=== PATIENT | male | born 1960 | race Two or more races ===

== ENCOUNTER 2021-02-10 00:18 | Inpatient (IN) | payer OTHER ==
[~2021-02-10] VITALS: Ht 170.2 cm; Wt 79.4 kg
--- NOTE | 2021-02-10 00:45 | NUR ---
PT BIB FOR C/O ON AND OFF SOB FOR THE PAST 2 DAYS. HAD R NEPHRECTOMY AT [facility] 1 MONTH AGO. PT ALERT AND ORIENTED X3. AMBULATORY
--- NOTE | 2021-02-10 01:23 | NUR ---
EMT @ BEDSIDE DOING EKG
--- NOTE | 2021-02-10 01:23 | NUR ---
BLOOD COLLECTED AND SENT TO LAB
[2021-02-10 01:37] LABS: BASOPHILS # (AUTO) 0.1 K/uL (0.0-0.2); BASOPHILS % (AUTO) 0.6 % (0.0-2.0); EOSINOPHILS % (AUTO) 1.2 % (0.0-6.0); HEMATOCRIT 31 % (39-51); LYMPHOCYTES # (AUTO) 2.4 K/uL (0.8-4.8); LYMPHOCYTES % (AUTO) 20.9 % (20.0-44.0); MEAN CORPUSCULAR HGB CONC 32 g/dl (31.0-36.0); MEAN CORPUSCULAR VOLUME 78 fL (80-96); MONOCYTES # (AUTO) 0.8 K/uL (0.1-1.30); MONOCYTES % (AUTO) 6.7 % (2.0-12.0); NEUTROPHILS # (AUTO) 8.2 K/uL (1.8-8.9); NEUTROPHILS % (AUTO) 70.6 % (43.0-81.0); PLATELET COUNT (AUTO) 379 K/uL (150-450); RED BLOOD CELL COUNT(AUTO) 3.98 MIL/uL (4.5-6.0); WHITE BLOOD COUNT (AUTO) 11.6 K/uL (4.3-11.0)
[2021-02-10 01:44] LABS: CALCIUM, SERUM 9.5 mg/dL (8.5-10.1); CARBON DIOXIDE 28 mmol/L (21-32); CHLORIDE 101 mmol/L (98-107); CREATININE 1.5 mg/dL (0.6-1.3); GLUCOSE 97 mg/dL (74-106); SODIUM SERUM 138 mmol/L (136-145); UREA NITROGEN, BLOOD 27 mg/dL (7-18)
[2021-02-10 02:00] LABS: ALANINE AMINOTRANSFERASE 24 U/L (12-78); ALBUMIN 3.9 g/dL (3.4-5.0); ALKALINE PHOSPHATASE 107 U/L (46-116); ASPARTATE AMINOTRANSFERASE 13 U/L (15-37); BILIRUBIN,DIRECT 0.1 mg/dL (0.0-0.2); BILIRUBIN,TOTAL 0.3 mg/dL (0.2-1.0); TOTAL PROTEIN, SERUM 7.7 g/dL (6.4-8.2)
--- NOTE | 2021-02-10 04:32 | NUR ---
RESTING COMFORTABLY. VSS.
[2021-02-10] MEDS ORDERED: ASPIRIN 81 MG TAB.CHEW PO ONE (05:30)
--- NOTE | 2021-02-10 05:31 | NUR ---
dr ibrahim on the phone w/ dr san
[2021-02-10] MEDS ORDERED: ASPIRIN 81 MG TAB.CHEW ONE (05:33)
[2021-02-10] MEDS ORDERED: MAGNESIUM HYDROXIDE 30 ML UDC PO PRN (06:00)
[2021-02-10] MEDS ORDERED: MORPHINE SULFATE INJ 2 MG/ML DISP.SYRIN IV PRN (06:00)
[2021-02-10] MEDS ORDERED: TEMAZEPAM 15 MG CAPSULE PO PRN (06:00)
[2021-02-10] MEDS ORDERED: MAG HYDROX/AL HYDROX/SIMETH 30 ML UDC PO PRN (06:00)
[2021-02-10] MEDS ORDERED: HYDROCODONE/APAP 5/325MG TABLET PO PRN (06:00)
[2021-02-10] MEDS ORDERED: Z GUARD REMEDY 2 OZ OINT TP PRN (06:00)
[2021-02-10] MEDS ORDERED: ACETAMINOPHEN 325 MG TABLET PO PRN (06:00)
[2021-02-10] MEDS ORDERED: ONDANSETRON HCL/PF 4 MG/2 ML VIAL IVP PRN (06:00)
[2021-02-10] MEDS ORDERED: IV NS 0.9% 1,000 ML IV PRN (06:00)
--- NOTE | 2021-02-10 07:19 | NUR ---
TELE [id number]
--- NOTE | 2021-02-10 07:24 | NUR ---
RN NOTE RECEIVED REPORT FROM GERALDO KOCH
--- NOTE | 2021-02-10 07:25 | NUR ---
report given to rambo mocetzuma
--- NOTE | 2021-02-10 07:52 | NUR ---
transferred pt to 322-1
[2021-02-10] MEDS ORDERED: GLIP10TA11 PO (08:26)
[2021-02-10] MEDS ORDERED: OMEP40CA21 PO (08:26)
[2021-02-10] MEDS ORDERED: HYDR25TA4 PO (08:26)
[2021-02-10] MEDS ORDERED: LISI40TA13 PO (08:26)
[2021-02-10] MEDS ORDERED: METF-442 PO (08:26)
[2021-02-10] MEDS ORDERED: ALLO100T PO (08:26)
[2021-02-10] MEDS ORDERED: ALOG25TA2 PO (08:26)
[2021-02-10] MEDS ORDERED: PIOG45TA5 PO (08:26)
[2021-02-10] MEDS ORDERED: ATOR20TA PO (08:26)
[2021-02-10] MEDS ORDERED: AMLO-212 PO (08:26)
[2021-02-10 09:00] VITALS: BP 157/71
[2021-02-10] MEDS ORDERED: ASPIRIN 81 MG TAB.CHEW PO SCH (09:00)
[2021-02-10] MEDS ORDERED: ATORVASTATIN 10 MG TABLET PO SCH (09:00)
[2021-02-10 09:21] LABS: BASOPHILS # (AUTO) 0.1 K/uL (0.0-0.2); BASOPHILS % (AUTO) 1.1 % (0.0-2.0); HEMATOCRIT 35 % (39-51); LYMPHOCYTES # (AUTO) 2.2 K/uL (0.8-4.8); LYMPHOCYTES % (AUTO) 24.8 % (20.0-44.0); MEAN CORPUSCULAR HGB CONC 32 g/dl (31.0-36.0); MEAN CORPUSCULAR VOLUME 79 fL (80-96); MONOCYTES # (AUTO) 0.5 K/uL (0.1-1.30); MONOCYTES % (AUTO) 5.8 % (2.0-12.0); NEUTROPHILS # (AUTO) 5.9 K/uL (1.8-8.9); NEUTROPHILS % (AUTO) 67.3 % (43.0-81.0); PLATELET COUNT (AUTO) 389 K/uL (150-450); RED BLOOD CELL COUNT(AUTO) 4.39 MIL/uL (4.5-6.0); WHITE BLOOD COUNT (AUTO) 8.8 K/uL (4.3-11.0)
[2021-02-10] MEDS: PANTOPRAZOLE 40 MG TABLET.DR PO SCH (09:29)
[2021-02-10] MEDS: ASPIRIN 81 MG TAB.CHEW PO SCH (09:29)
[2021-02-10] MEDS: IV NS 0.9% 1,000 ML IV PRN ×2 (09:30→22:36)
[2021-02-10 09:40] LABS: CALCIUM, SERUM 9.4 mg/dL (8.5-10.1); CREATININE 1.3 mg/dL (0.6-1.3); POTASSIUM 4.3 mmol/L (3.5-5.1)
[2021-02-10 09:46] LABS: BILIRUBIN,TOTAL 0.4 mg/dL (0.2-1.0); PHOSPHORUS 3.8 mg/dL (2.5-4.9); TOTAL PROTEIN, SERUM 7.9 g/dL (6.4-8.2)
[2021-02-10 11:29] VITALS: BP 119/63
[2021-02-10] MEDS: METOPROLOL TARTRATE 50 MG TABLET PO SCH ×2 (11:37→17:03)
[2021-02-10] MEDS: ENOXAPARIN SODIUM 40 MG/0.4 ML DISP.SYRIN SQ SCH (14:03)
[2021-02-10 16:29] VITALS: BP 106/59
[2021-02-10] MEDS: glipiZIDE 10 MG TABLET PO SCH (17:03)
[2021-02-10] MEDS: METFORMIN 500 MG TABLET PO SCH (17:03)
--- NOTE | 2021-02-10 18:15 | NUR ---
END OF SHIFT SUMMARY PATIENT WAS TRANSFERRED VIA GURNEY AT 0750. PT IS AMBULATORY. A/O X4. UZBEK SPEAKING. ON ROOM AIR, NO SOB NOTED. IN NO APPARENT DISTRESS. BP 157/71 AK 68 RR 20 T 98.2 SA02 100%. PT IS ABLE TO MAKE NEEDS KNOWN. IV ACCESS ON L AC #18, NS RUNNING X 75 ML/HR, INTACT AND PATENT. NO REPORTS OF PAIN OR DISCOMFORT AT THIS TIME. DUE MEDS GIVEN ORDERED. ALL NEEDS HAVE BEEN MET AND ATTENDED. SAFETY MEASURES MAINTAINED. BED IN LOWEST POSITION, BRAKES LOCKED. SIDE RAILS UP X2. KEPT CALL LIGHT WITHIN REACH. WILL ENDORSE CONTINUITY OF CARE TO ONCOMING SHIFT.
--- NOTE | 2021-02-10 19:45 | NUR ---
CASINO SURVEILLANCE OFFICER OPENING NOTE PT A/OX4; ABLE TO MAKE NEEDS KNOWN. TOLERATING R/A WELL WITH NO SOB. EXTERNAL CARDIAC TELE MONITOR READS SR AT 70. DENIES PAIN OR DISCOMFORT AT THIS TIME. SURGICAL WOUND NOTED TO ABD; SKIN KEPT CLEAN AND DRY. LAC #18 NS @ 75ML/HR; PATENT AND INTACT. SAFETY MEASURES IN PLACE: BED IN LOWEST LOCKED POSITION, SIDE RAILS UP X2, CALL LIGHT WITHIN EASY REACH. PT IN STABLE CONDITION, WILL CONT. PLAN OF CARE.
[2021-02-10 20:40] VITALS: BP 128/68
[2021-02-11 00:01] VITALS: BP 130/70
[2021-02-11] MEDS: METOPROLOL TARTRATE 50 MG TABLET PO SCH ×5 (00:01→23:06)
--- NOTE | 2021-02-11 06:17 | NUR ---
M48 M60 ARMOR CREWMAN CLOSING NOTE PT A/OX4; ABLE TO MAKE NEEDS KNOWN. TOLERATING R/A WELL WITH NO SOB. EXTERNAL CARDIAC TELE MONITOR READS SB AT 56. DENIES PAIN OR DISCOMFORT AT THIS TIME. SURGICAL WOUND NOTED TO ABD; SKIN KEPT CLEAN AND DRY. LAC #18 NS @ 75ML/HR; PATENT AND INTACT. SAFETY MEASURES IN PLACE: BED IN LOWEST LOCKED POSITION, SIDE RAILS UP X2, CALL LIGHT WITHIN EASY REACH. PT IN STABLE CONDITION, WILL ENDORSE PLAN OF CARE TO ONCOMING MORNING RN.
[2021-02-11 06:29] LABS: BASOPHILS % (AUTO) 0.6 % (0.0-2.0); EOSINOPHILS % (AUTO) 1.5 % (0.0-6.0); HEMATOCRIT 31 % (39-51); LYMPHOCYTES # (AUTO) 2.7 K/uL (0.8-4.8); LYMPHOCYTES % (AUTO) 35.5 % (20.0-44.0); MEAN CORPUSCULAR HGB CONC 33 g/dl (31.0-36.0); MEAN CORPUSCULAR VOLUME 79 fL (80-96); MONOCYTES # (AUTO) 0.7 K/uL (0.1-1.30); MONOCYTES % (AUTO) 8.5 % (2.0-12.0); NEUTROPHILS # (AUTO) 4.1 K/uL (1.8-8.9); NEUTROPHILS % (AUTO) 53.9 % (43.0-81.0); PLATELET COUNT (AUTO) 369 K/uL (150-450); RED BLOOD CELL COUNT(AUTO) 3.91 MIL/uL (4.5-6.0); WHITE BLOOD COUNT (AUTO) 7.7 K/uL (4.3-11.0)
[2021-02-11 06:55] LABS: CREATININE 1.2 mg/dL (0.6-1.3); MAGNESIUM 1.9 mg/dL (1.8-2.4); PHOSPHORUS 4.4 mg/dL (2.5-4.9)
[2021-02-11 07:11] LABS: THYROID STIMULATING HORMONE 1.155 uIU/mL (0.358-3.74)
[2021-02-11] MEDS ORDERED: PANTOPRAZOLE 40 MG TABLET.DR PO SCH (07:30)
--- NOTE | 2021-02-11 07:44 | NUR ---
TELE/RN OPENING NOTES RECEIVED PATIENT ON BED AWAKE ALERT AND ORIENTED X4. PATIENT IS ON ROOM AIR. PATIENT IN NO APPARENT RESPIRATORY DISTRESS NOTED. NO COMPLAINED OF PAIN NOTED AT THIS TIME. TELE MONITOR READING SINUS ALBERTO 48 BPM. WILL CONTINUE TO MONITOR.
[2021-02-11] MEDS: PANTOPRAZOLE 40 MG TABLET.DR PO SCH (07:46)
[2021-02-11] MEDS: METFORMIN 500 MG TABLET PO SCH ×2 (08:27→17:08)
[2021-02-11] MEDS: ATORVASTATIN 10 MG TABLET PO SCH (08:27)
[2021-02-11] MEDS: ASPIRIN 81 MG TAB.CHEW PO SCH (08:28)
[2021-02-11] MEDS: glipiZIDE 10 MG TABLET PO SCH ×2 (08:28→17:07)
[2021-02-11] MEDS: ALLOPURINOL 100 MG TABLET PO SCH (08:28)
[2021-02-11] MEDS: AMLODIPINE BESYLATE 5 MG TABLET PO SCH (08:28)
[2021-02-11] MEDS: LINAGLIPTIN 5 MG TABLET PO SCH (08:28)
[2021-02-11] MEDS: PIOGLITAZONE HCL 15 MG TABLET PO SCH (08:28)
[2021-02-11] MEDS: HYDROCHLOROTHIAZIDE 25 MG TABLET PO SCH (08:29)
[2021-02-11] MEDS: ENOXAPARIN SODIUM 40 MG/0.4 ML DISP.SYRIN SQ SCH (08:33)
[2021-02-11 12:00] VITALS: BP 138/60
[2021-02-11 13:36] VITALS: BP 148/76
[2021-02-11] MEDS: DOCUSATE SODIUM 100 MG CAPSULE PO SCH (15:36)
[2021-02-11 15:37] LABS: BILIRUBIN,URINE NEGATIVE (NEGATIVE); COLOR,URINE YELLOW (YELLOW); LEUKOCYTE ESTERASE ,URINE NEGATIVE (NEGATIVE); NITRITE, URINE NEGATIVE (NEGATIVE); PROTEIN,URINE NEGATIVE (NEGATIVE); UGLUCOSE NEGATIVE (NEGATIVE); UROBILINOGEN,URINE 0.2 EU/dL (0.2)
[2021-02-11 16:28] LABS: EOSINOPHIL,URINE None Seen
[2021-02-11 16:58] VITALS: BP 148/68
--- NOTE | 2021-02-11 19:18 | NUR ---
MS/RN CLOSING NOTES PATIENT IS ON BED ALERT AND ORIENTED X3. PATIENT IS ON ROOM AIR. PATIENT IN NO APPARENT RESPIRATORY DISTRESS NOTED. NO COMPLAINED OF PAIN NOTED AT THIS TIME. IV ACCESS AT LEFT AC #18G WITH IV FLUID OF NS AT 75ML/HOUR ON AND INFUSING WELL. SEEN AND EXAMINED BY MD WITH ORDERS MADE AND CARRIED OUT. ALL DUE MEDICATIONS WAS GIVEN. SAFETY PRECAUTIONS WAS IN PLACED. BED IN LOWEST POSITION AND LOCKED. SIDE RAILS UP X2. CALL LIGHT WITHIN REACH. WILL ENDORSE TO WRAPPER LAYER RN FOR CONTINUITY OF CARE.
[2021-02-11 20:00] VITALS: BP 126/71
--- NOTE | 2021-02-11 20:35 | NUR ---
PEDIATRICS PHYSICIAN OPENING NOTES RECEIVED PATIENT IN BED, WATCHING TV. PT IS AOx4, CHINESE SPEAKING. ABLE TO MAKE NEEDS KNOWN. ON RA AND TOLERATING WELL. NO SOB NOTED. NO S/SX OF RESPIRATORY DISTRESS NOTED. IV ACCESS IN LAC #18 RUNNING NS @ 75 ML/HR. NO COMPLAINTS OF PAIN AT THIS TIME. SAFETY PRECAUTIONS IN PLACE: BED IN LOWEST, LOCKED POSITION, BRAKES ON, SIDERAILS UPx2. CALL LIGHT AND TABLE WITHIN REACH. WILL CONTINUE TO MONITOR.
[2021-02-11 20:37] LABS: CREATININE, URINE 60.6 MG/DL (30.0-125.0); URINE TOTAL PROTEIN 18.1 mg/dL (0-11.9)
[2021-02-11] MEDS: IV NS 0.9% 1,000 ML IV PRN (23:17)
[2021-02-12] VITALS: BP 121/68
[2021-02-12 04:00] VITALS: BP 125/68
[2021-02-12] MEDS: METOPROLOL TARTRATE 50 MG TABLET PO SCH ×3 (06:06→17:55)
--- NOTE | 2021-02-12 06:41 | NUR ---
OBSERVER ELECTRICAL PROSPECTING CLOSING NOTES PATIENT IN BED, ASLEEP, AWAKENS TO VERBAL STIMULI. PT IS AOx4, CITIZEN OF [place] SPEAKING. ABLE TO MAKE NEEDS KNOWN. ON RA AND TOLERATING WELL. NO SOB NOTED. NO S/SX OF RESPIRATORY DISTRESS NOTED. IV ACCESS IN LAC #18 RUNNING NS @ 75 ML/HR. NO COMPLAINTS OF PAIN THROUGHOUT SHIFT. ALL NEEDS MET. PT KEPT CLEAN AND DRY. SAFETY PRECAUTIONS IN PLACE: BED IN LOWEST, LOCKED POSITION, BRAKES ON, SIDERAILS UPx2. CALL LIGHT AND TABLE WITHIN REACH. WILL ENDORSE TO ONCOMING SHIFT.
[2021-02-12 08:00] VITALS: BP 143/68
--- NOTE | 2021-02-12 08:00 | NUR ---
RN OPENING NOTE PT AWAKE IN BED RESTING. ON RA WITH NO SOB OR RESPIRATORY DISTRESS PRESENT. ON RA WITH NO SOB OR RESPIRATORY DISTRESS PRESENT. A/O X4 AND SPEAKS [place] AND [place]. ON SUPERVISOR BREW HOUSE. NO EDEMA PRESENT. SELF AMBULATORY WITH BATHROOM PRIVILEGES. ABDOMINAL INCISION PRESENT, PICTURES IN CHART, WOUND CONSULT ORDERED. IV PRESENT ON L AC 18G AND FLUSHES WELL. ID BAND PRESENT. LABS AND ORDERS REVIEWED. SAFETY MEASURES IN PLACE. SIDE RAILS RAISED. BED LOWERED. CALL LIGHT WITHIN REACH. WILL CONTINUE TO MONITOR.
[2021-02-12] MEDS: PANTOPRAZOLE 40 MG TABLET.DR PO SCH (08:08)
[2021-02-12] MEDS: PIOGLITAZONE HCL 15 MG TABLET PO SCH (08:08)
[2021-02-12] MEDS: glipiZIDE 10 MG TABLET PO SCH ×2 (08:09→17:00)
[2021-02-12] MEDS: LINAGLIPTIN 5 MG TABLET PO SCH (08:09)
[2021-02-12] MEDS: DOCUSATE SODIUM 100 MG CAPSULE PO SCH (08:09)
[2021-02-12] MEDS: ASPIRIN 81 MG TAB.CHEW PO SCH (08:09)
[2021-02-12] MEDS: ATORVASTATIN 10 MG TABLET PO SCH (08:09)
[2021-02-12] MEDS: METFORMIN 500 MG TABLET PO SCH (08:09)
[2021-02-12] MEDS: ALLOPURINOL 100 MG TABLET PO SCH (08:09)
[2021-02-12] MEDS: ENOXAPARIN SODIUM 40 MG/0.4 ML DISP.SYRIN SQ SCH (08:10)
[2021-02-12] MEDS: AMLODIPINE BESYLATE 5 MG TABLET PO SCH (10:00)
[2021-02-12] MEDS: HYDROCHLOROTHIAZIDE 25 MG TABLET PO SCH (10:01)
[2021-02-12 10:05] LABS: CALCIUM, SERUM 9.2 mg/dL (8.5-10.1); CREATININE 1.1 mg/dL (0.6-1.3); POTASSIUM 3.8 mmol/L (3.5-5.1)
[2021-02-12 10:11] LABS: ALBUMIN 3.8 g/dL (3.4-5.0); BILIRUBIN,TOTAL 0.4 mg/dL (0.2-1.0); MAGNESIUM 1.8 mg/dL (1.8-2.4); PHOSPHORUS 3.8 mg/dL (2.5-4.9); TOTAL PROTEIN, SERUM 7.8 g/dL (6.4-8.2)
[2021-02-12 10:20] LABS: BASOPHILS % (AUTO) 0.5 % (0.0-2.0); HEMATOCRIT 35 % (39-51); LYMPHOCYTES # (AUTO) 2.1 K/uL (0.8-4.8); LYMPHOCYTES % (AUTO) 28.6 % (20.0-44.0); MEAN CORPUSCULAR HGB CONC 32 g/dl (31.0-36.0); MEAN CORPUSCULAR VOLUME 80 fL (80-96); MONOCYTES # (AUTO) 0.4 K/uL (0.1-1.30); MONOCYTES % (AUTO) 5.4 % (2.0-12.0); NEUTROPHILS # (AUTO) 4.8 K/uL (1.8-8.9); NEUTROPHILS % (AUTO) 64.5 % (43.0-81.0); PLATELET COUNT (AUTO) 414 K/uL (150-450); RED BLOOD CELL COUNT(AUTO) 4.37 MIL/uL (4.5-6.0); WHITE BLOOD COUNT (AUTO) 7.4 K/uL (4.3-11.0)
[2021-02-12 12:00] VITALS: BP 124/68
[2021-02-12] MEDS ORDERED: METOPROLOL TARTRATE INJ 5 MG/5 ML AMPUL IVP PRN (14:00)
[2021-02-12] MEDS ORDERED: NITROGLYCERIN 0.4 MG/TAB BOTTLE SL PRN (14:00)
[2021-02-12] MEDS ORDERED: IOHEXOL-350 100 ML VIAL IV ONE (15:05)
[2021-02-12] MEDS ORDERED: IV NS 0.9% 250 ML IV ONE (15:05)
[2021-02-12 16:00] VITALS: BP 123/54
--- NOTE | 2021-02-12 18:49 | NUR ---
RN CLOSING NOTE PT AWAKE IN BED RESTING. ON RA WITH NO SOB OR RESPIRATORY DISTRESS PRESENT. ON RA WITH NO SOB OR RESPIRATORY DISTRESS PRESENT. A/O X4 AND SPEAKS FRISIAN AND STATELESS. NO TAILMAN PRESENT. NO EDEMA PRESENT. SELF AMBULATORY WITH BATHROOM PRIVILEGES. ABDOMINAL INCISION PRESENT, PICTURES IN CHART, WOUND CONSULT ORDERED. IV PRESENT ON L AC 18G AND FLUSHES WELL. ID BAND PRESENT. LABS AND ORDERS REVIEWED. SAFETY MEASURES IN PLACE. SIDE RAILS RAISED. BED LOWERED. CALL LIGHT WITHIN REACH. WILL GIVE REPORT TO NIGHT NURSE FOR RITA.
[2021-02-12] MEDS ORDERED: METO50TA16 PO ×2 (19:17→19:19)
[2021-02-12] MEDS ORDERED: ASPI-1169 PO (19:19)
[2021-02-12 20:44] VITALS: BP 118/76
--- NOTE | 2021-02-12 22:32 | NUR ---
MANAGER HOME OPENING NOTES RECEIVED PATIENT IN BED @ 1930, WATCHING TV. PT IS AOx4, [place] SPEAKING. ABLE TO MAKE NEEDS KNOWN. ON RA AND TOLERATING WELL. NO SOB NOTED. NO S/SX OF RESPIRATORY DISTRESS NOTED. IV ACCESS IN LAC #18. IV IS INTACT, PATENT, AND FLUSHING WELL. NO COMPLAINTS OF PAIN AT THIS TIME. SAFETY PRECAUTIONS IN PLACE: BED IN LOWEST, LOCKED POSITION, BRAKES ON, SIDERAILS UPx2. CALL LIGHT AND TABLE WITHIN REACH. WILL CONTINUE TO MONITOR.
[2021-02-13] MEDS: METOPROLOL TARTRATE 50 MG TABLET PO SCH ×2 (00:38→05:39)
--- NOTE | 2021-02-13 06:41 | NUR ---
MS RN CLOSING NOTES PATIENT IN BED, ASLEEP, AWAKENS TO VERBAL STIMULI. PT IS AOx4, LITHU[place] SPEAKING. ABLE TO MAKE NEEDS KNOWN. ON RA AND TOLERATING WELL. NO SOB NOTED. NO S/SX OF RESPIRATORY DISTRESS NOTED. IV ACCESS IN LAC #18. IV IS INTACT, PATENT, AND FLUSHING WELL. NO COMPLAINTS OF PAIN THROUGHOUT SHIFT. ALL NEEDS MET. PT KEPT CLEAN AND DRY. SAFETY PRECAUTIONS IN PLACE: BED IN LOWEST, LOCKED POSITION, BRAKES ON, SIDERAILS UPx2. CALL LIGHT AND TABLE WITHIN REACH. WILL ENDORSE TO ONCOMING SHIFT.
--- NOTE | 2021-02-13 07:20 | NUR ---
MS RN OPENING NOTES RECEIVED PT AWAKE IN BED WATCHING TV. A/O X4. ABLE TO VERBALIZE NEEDS, DENIES PAIN OR ANY DISCOMFORTS AT THIS TIME. ON ROOM AIR, RESPIRATIONS EVEN AND UNLABORED. IV SL ON LAC G# 18 INTACT AND PATENT. SAFETY MEASURES IN PLACE: BED IN LOWEST LOCKED POSITION, S/R UP X2 AND CALL LIGHT WITHIN REACH. WILL CONTINUE TO MONITOR.
[2021-02-13] MEDS: PANTOPRAZOLE 40 MG TABLET.DR PO SCH (07:40)
[2021-02-13 08:00] VITALS: BP 129/73
[2021-02-13] MEDS: PIOGLITAZONE HCL 15 MG TABLET PO SCH (08:29)
[2021-02-13] MEDS: ATORVASTATIN 10 MG TABLET PO SCH (08:29)
[2021-02-13] MEDS: ASPIRIN 81 MG TAB.CHEW PO SCH (08:29)
[2021-02-13] MEDS: glipiZIDE 10 MG TABLET PO SCH (08:30)
[2021-02-13] MEDS: ALLOPURINOL 100 MG TABLET PO SCH (08:30)
[2021-02-13] MEDS: LINAGLIPTIN 5 MG TABLET PO SCH (08:30)
[2021-02-13] MEDS: DOCUSATE SODIUM 100 MG CAPSULE PO SCH (08:30)
[2021-02-13] MEDS: AMLODIPINE BESYLATE 5 MG TABLET PO SCH (08:30)
[2021-02-13 08:31] VITALS: BP 129/73
[2021-02-13] MEDS: HYDROCHLOROTHIAZIDE 25 MG TABLET PO SCH (08:31)
[2021-02-13] MEDS: ENOXAPARIN SODIUM 40 MG/0.4 ML DISP.SYRIN SQ SCH (08:32)
--- NOTE | 2021-02-13 10:13 | NUR ---
RN DIS CHARGED NOTES PATIENT DISCHARGED HOME IN STABLE CONDITION. A/O X4. ABLE TO MAKE NEEDS KNOWN IN IRISH. V/S TAKEN , STABLE AND RECORDED. ALL BELONGINGS ACCOUNTED FOR AND SIGNED FROM. IV ACCESS ON LAC G# 18 REMOVED WITH NO ACTIVE BLEEDING NOTED, DRY PRESSURE DRESSING APPLIED TO SITE. NAME ARMBAND REMOVED. HEALTH TEACHINGS/DISCHARGED INSTRUCTIONS GIVEN TO PT INTERPRETED BY ESTHER MARIANO IN IRISH, PT VERBALIZED UNDERSTANDING. PT LEFT UNIT AMBULATORY AT 0950 ACCOMPANIED BY ESTHER MARIANO. CHARGE NURSE AWARE OF DISCHARGE.
[2021-02-14] MEDS ORDERED: METFORMIN 500 MG TABLET PO SCH (09:00)
[2021-02-15] MEDS ORDERED: METFORMIN 500 MG TABLET PO SCH (09:00)
== END 2021-02-13 09:52 | disposition home or self-care (01) | DRG 199 ==
LOC: ER 00:28 → TELE 07:52 → MED 02-12 13:06
PROVIDERS: ADMIT Nurse Practitioner Acute Care; ATTEND Nurse Practitioner Acute Care
DX: I16.0 Hypertensive urgency (principal); N17.0 Acute kidney failure with tubular necrosis; E11.9 Type 2 diabetes mellitus without complications; E78.5 Hyperlipidemia, unspecified; D50.9 Iron deficiency anemia, unspecified; I50.32 Chronic diastolic (congestive) heart failure; M10.9 Gout, unspecified; R07.9 Chest pain, unspecified; Z20.822 Contact with and (suspected) exposure to COVID-19; N28.1 Cyst of kidney, acquired; Z79.84 Long term (current) use of oral hypoglycemic drugs; Z87.891 Personal history of nicotine dependence; Z90.5 Acquired absence of kidney; Z79.82 Long term (current) use of aspirin; R91.1 Solitary pulmonary nodule; I11.0 Hypertensive heart disease with heart failure
CPT/HCPCS: 36415; 71045-TC; 75574; 76770-TC; 80048-TC; 80053-TC; 80061-TC; 80076-TC; 82570-TC; 82728-TC; 82962-TC; 83540-TC; 83735-TC; 83880; 84100-TC; 84155-TC; 84300-TC; 84443-TC; 84484-TC; 85025-TC; 85378-TC; 87081-TC; 93307-TC; C9803; G0378; J1650; J7030; J7050; Q9967